=== PATIENT | male | born 1970 | race Two or more races ===

== ENCOUNTER 2023-01-03 12:31 | Inpatient (IN) | payer SELFPAY ==
[2023-01-03] MEDS ORDERED: Pantoprazole 40 MG Vial IVPUSH ONE (12:54)
[2023-01-03] MEDS ORDERED: Dextrose 5%-0.9% NaCl 1,000 ML IV SCH (13:00)
[2023-01-03 13:22] LABS: BASOPHILS PERCENT AUTO 0.4 % (0.0-1.0); EOSINOPHILS ABSOLUTE AUTO 0.1 K/mm3 (0.0-0.4); EOSINOPHILS PERCENT AUTO 1.2 % (0.0-6.0); HEMATOCRIT 29.5 % (42.0-52.0); HEMOGLOBIN 10.3 gm/dl (14.0-18.0); IMMATURE GRAN ABSOLUTE AUTO 0.03 K/mm3 (0.00-0.05); IMMATURE GRAN PERCENT AUTO 0.6 % (0.0-0.4); LYMPHOCYTES ABSOLUTE AUTO 1.4 K/mm3 (1.0-4.8); LYMPHOCYTES PERCENT AUTO 27.2 % (24.0-44.0); MEAN CORPUSCULAR HEMOGLOBIN 33.9 pg (28.0-32.0); MEAN CORPUSCULAR HGB CONC 34.9 g/dl (32.0-36.0); MEAN PLATELET VOLUME 9.8 fl (9.4-12.4); MONOCYTES ABSOLUTE AUTO 0.3 K/mm3 (0.0-0.8); MONOCYTES PERCENT AUTO 6.2 % (0.0-8.0); NEUTROPHILS ABSOLUTE AUTO 3.3 K/mm3 (1.8-7.7); NEUTROPHILS PERCENT AUTO 64.4 % (41.0-71.0); PLATELET COUNT,PLT 205 K/mm3 (150-400); RED BLOOD CELL COUNT 3.04 M/mm3 (4.52-5.90); WHITE BLOOD CELL COUNT,WBC 5.14 K/mm3 (3.9-11.3)
[2023-01-03] MEDS: Pantoprazole 80 MG in Sodium Chloride 0.9% 100 ML IV SCH ×2 (13:24→22:16)
[2023-01-03 13:42] LABS: INR 1.05; PROTHROMBIN TIME 11.2 SECONDS (9.7-12.0)
[2023-01-03 13:43] LABS: PTT,PARTIAL THROMBOPLSTIN TIME 24.2 SECONDS (21.7-31.4)
[2023-01-03 13:47] LABS: ALANINE AMINOTRANSFERASE,ALT 25 U/L (16-63); ALBUMIN 3.3 g/dl (3.4-5.0); ALKALINE PHOSPHATASE 52 U/L (46-116); ANION GAP 13.8 (5-15); ASPARTATE AMNIOTRANSFERASE,AST 22 U/L (15-37); BILIRUBIN TOTAL 0.3 mg/dL (0.2-1.0); BLOOD UREA NITROGEN,BUN 21 mg/dL (7-18); BUN/CREATININE RATIO 23.3 (14-18); C-REACTIVE PROTEIN <0.2 mg/dL (<1.0); CALCIUM 8.4 mg/dL (8.5-10.1); CARBON DIOXIDE,CO2 25 mEq/L (21-32); CHLORIDE,CL 104 mEq/L (98-107); CREATININE 0.9 mg/dL (0.7-1.3); EST CRCL DRUG DOSING (CG) 82.57 mL/min; ESTIMATED GFR 102 mL/min (>60); GAMMA GLUTAMYL TRANSFERASE,GGT 14 U/L (15-85); GLUCOSE RANDOM 104 mg/dL (70-99); LIPASE 59 U/L (16-77); MAGNESIUM 1.8 mg/dL (1.8-2.4); POTASSIUM,K 3.8 mEq/L (3.5-5.1); PROTEIN TOTAL,TP 6.5 g/dl (6.4-8.2); SODIUM,NA 139 mEq/L (136-145)
[2023-01-03] MEDS ORDERED: Acetaminophen 325 MG Tab PO PRN (14:59)
[2023-01-03] MEDS ORDERED: Ondansetron 4 MG Tab.DIS PO PRN (14:59)
[2023-01-03] MEDS ORDERED: FLU (Flulaval Quad) 2023-24(6MOS UP)/PF 60 MCG/0.5 ML Syringe IM ONE (16:00)
[2023-01-03] MEDS: Sodium Chloride 0.9% 1,000 ML IV SCH (16:22)
[2023-01-03] MEDS: Pantoprazole 40 MG Vial IV SCH (20:52)
[2023-01-04] MEDS: Sodium Chloride 0.9% 1,000 ML IV SCH (05:00)
[2023-01-04 05:28] LABS: BASOPHILS PERCENT AUTO 0.5 % (0.0-1.0); EOSINOPHILS ABSOLUTE AUTO 0.1 K/mm3 (0.0-0.4); IMMATURE GRAN ABSOLUTE AUTO 0.01 K/mm3 (0.00-0.05); IMMATURE GRAN PERCENT AUTO 0.2 % (0.0-0.4); LYMPHOCYTES ABSOLUTE AUTO 1.8 K/mm3 (1.0-4.8); LYMPHOCYTES PERCENT AUTO 40.3 % (24.0-44.0); MEAN CORPUSCULAR HEMOGLOBIN 33.2 pg (28.0-32.0); MEAN CORPUSCULAR HGB CONC 33.6 g/dl (32.0-36.0); MEAN CORPUSCULAR VOLUME 98.8 fl (83.0-99.0); MEAN PLATELET VOLUME 10.4 fl (9.4-12.4); MONOCYTES ABSOLUTE AUTO 0.4 K/mm3 (0.0-0.8); MONOCYTES PERCENT AUTO 9.7 % (0.0-8.0); NEUTROPHILS ABSOLUTE AUTO 2.1 K/mm3 (1.8-7.7); NEUTROPHILS PERCENT AUTO 47.3 % (41.0-71.0); PLATELET COUNT,PLT 178 K/mm3 (150-400); RED BLOOD CELL COUNT 2.53 M/mm3 (4.52-5.90); WHITE BLOOD CELL COUNT,WBC 4.44 K/mm3 (3.9-11.3)
[2023-01-04 05:53] LABS: ALBUMIN 2.8 g/dl (3.4-5.0); ANION GAP 9.1 (5-15); BILIRUBIN TOTAL 0.4 mg/dL (0.2-1.0); BUN/CREATININE RATIO 16.3 (14-18); CALCIUM 8.3 mg/dL (8.5-10.1); CREATININE 0.8 mg/dL (0.7-1.3); EST CRCL DRUG DOSING (CG) 85.94 mL/min; POTASSIUM,K 4.1 mEq/L (3.5-5.1); PROTEIN TOTAL,TP 5.5 g/dl (6.4-8.2)
[2023-01-04 05:57] LABS: HEMOGLOBIN 8.4 gm/dl (14.0-18.0)
[2023-01-04] MEDS: Pantoprazole 40 MG Vial IV SCH (09:13)
[2023-01-04] MEDS: Pantoprazole 80 MG in Sodium Chloride 0.9% 100 ML IV SCH (09:21)
[2023-01-05] MEDS ORDERED: FLU (Flulaval Quad) 2023-24(6MOS UP)/PF 60 MCG/0.5 ML Syringe IM ONE (09:00)
== END 2023-01-04 09:49 | disposition home or self-care (01) | DRG 379 ==
LOC: JD.ED 12:31 → JD.MS 14:59
PROVIDERS: ADMIT Internal Medicine; ATTEND Internal Medicine
DX: K92.2 Gastrointestinal hemorrhage, unspecified (principal); D50.0 Iron deficiency anemia secondary to blood loss (chronic); G89.29 Other chronic pain; M54.9 Dorsalgia, unspecified; Z87.11 Personal history of peptic ulcer disease; Z79.899 Other long term (current) drug therapy; Z78.9 Other specified health status
CPT/HCPCS: 36415; 71045; 71045-26; 80053; 82977; 83690; 83735; 85025; 85610; 85730; 86140; 86850; 86900; 86901; 93005; 93010; 96361; 96374; 99285; 99285-25; C9113; J3490; J7030; J7042